=== PATIENT | female | born 1990 | race Caucasian/White ===

== ENCOUNTER → 2024-03-26 | Outpatient (CLI) | payer BC ==
--- NOTE | 2024-03-26 09:07 | US ---
EXAMINATION TYPE: US abdomen limited DATE OF EXAM: 03/26/2024 COMPARISON: NONE CLINICAL INDICATION: Female, 34 years old with history of R10.13 EPIGASTRIC PAIN; RUQ/Epigastric post prandial pain x several years TECHNIQUE: Grayscale and color Doppler imaging of the right upper quadrant was performed. FINDINGS: EXAM MEASUREMENTS: Liver Length: 16.7 cm Gallbladder Wall: 0.1 cm CBD: 0.7 cm Right Kidney: 12.4x5.3x5.7cm cm [employer] NOTES: Pancreas: Tail obscured by overlying bowel gas Liver: Increased echogenicity Gallbladder: cholelithiasis without evidence of cholecystitis. Largest stone measures up to 1.7 cm Evidence for sonographic Moody's sign: No CBD: upper limits of Normal/minimally dilated Right Kidney: No hydronephrosis or masses seen exam limited by bowel gas and body habitus Heterogeneous hyperechoic appearance of liver. Evaluation for focal masses suboptimal due to the hete rogeneity. IMPRESSION: 1. Gallstones without ultrasound evidence for acute cholecystitis. 2. Probable mild diffuse fatty infiltration of liver. Correlation with liver lab values and clinical correlation advised. [facility], , 03/26/2024 9:04 AM
== END | disposition home or self-care (01) ==
LOC: RADUSWWP 07:11
PROVIDERS: ATTEND Family Medicine
DX: K80.20 Calculus of gallbladder without cholecystitis without obstruction (principal); R10.13 Epigastric pain
CPT/HCPCS: 76705